=== PATIENT | male | born 1950 | race Caucasian/White ===

== ENCOUNTER 2021-10-01 18:20 | Emergency (ER) | payer MEDICARE ==
[2021-10-01] MEDS ORDERED: fentaNYL 100 MCG/2 ML SDV IVPUSH ONE ×2 (18:46→20:42)
[2021-10-01] MEDS ORDERED: Sodium Chloride 0.9% 10 ML Syringe FLUSH PRN (18:46)
[2021-10-01] MEDS ORDERED: Sodium Chloride 0.9% 1,000 ML IV SCH (19:00)
[2021-10-01 19:25] LABS: ESTIMATED GFR 71 mL/min (>60)
[2021-10-01] MEDS ORDERED: Sodium Chloride 0.9% 75 ML IV SCH (19:30)
[2021-10-01] MEDS ORDERED: Iopamidol 612 MG/ML 100 ML Bottle IV SCH (19:30)
[2021-10-01] MEDS ORDERED: Ketamine 500 MG/5 ML MDV IV ONE (20:42)
[2021-10-01] MEDS ORDERED: HYDROmorphone 1 MG/ML Syringe IVPUSH ONE ×2 (23:24→23:29)
== END 2021-10-02 01:04 ==
LOC: JP.ED 18:20
DX: S22.41XA Multiple fractures of ribs, right side, initial encounter for closed fracture (principal); S42.101A Fracture of unspecified part of scapula, right shoulder, initial encounter for closed fracture; Z79.01 Long term (current) use of anticoagulants; Z20.822 Contact with and (suspected) exposure to COVID-19; W18.39XA Other fall on same level, initial encounter
CPT/HCPCS: 36415; 70450; 71260; 72125; 80053; 81001; 85025; 85610; 96361; 96374; 96375; 96376; 99291; J1170; J3010; J3490; J7030; Q9967; U0002